=== PATIENT | female | born 1970 | race Two or more races ===

== ENCOUNTER 2021-07-12 08:31 | Emergency (ER) | payer BC, MEDICAID ==
[~2021-07-12] VITALS: Ht 160 cm; Wt 80.0 kg
[~2021-07-12 08:31] MED LIST: LISINOPRIL
[2021-07-12 08:34] VITALS: BP 160/92
[2021-07-12] MEDS ORDERED: LIDOCAINE HCL/EPINEPHRINE 1%-EPI 1:100,000 20 ML VIAL INFIL NR (09:45)
[2021-07-12] MEDS ORDERED: LIDOCAINE HCL/EPINEPHRINE 1%-EPI 1:100,000 50 ML VIAL INFIL ONE (09:45)
[2021-07-12] MEDS ORDERED: TETANUS, DIPHTHERIA, PERTUSSIS VAC/PF 0.5ML (>7YR OLD) IM ONE (10:15)
[2021-07-12] MEDS ORDERED: IBUP-2029 MT (10:51)
[2021-07-12] MEDS ORDERED: ACET-2708 MT (10:51)
== END 2021-07-12 11:25 | disposition home or self-care (01) ==
LOC: ER 08:31
DX: S61.215A Laceration without foreign body of left ring finger without damage to nail, initial encounter (principal); I10 Essential (primary) hypertension; X58.XXXA Exposure to other specified factors, initial encounter; Y93.89 Activity, other specified; Y92.89 Other specified places as the place of occurrence of the external cause; Y99.8 Other external cause status
CPT/HCPCS: 12002; 90471; 90715; 99283; Z7610; 12032

== ENCOUNTER 2021-07-25 10:22 | Emergency (ER) | payer MEDICAID ==
[~2021-07-25] VITALS: Ht 160 cm; Wt 82.0 kg
[~2021-07-25 10:22] MED LIST changes: +ACET-2708 MT; +IBUP-2029 MT
[2021-07-25 10:44] VITALS: BP 151/69
== END 2021-07-25 13:12 | disposition home or self-care (01) ==
LOC: ER 10:22
DX: S61.215D Laceration without foreign body of left ring finger without damage to nail, subsequent encounter (principal); I10 Essential (primary) hypertension; Z79.899 Other long term (current) drug therapy; X58.XXXD Exposure to other specified factors, subsequent encounter
CPT/HCPCS: 99281